=== PATIENT | male | born 1935 | race Two or more races ===

== ENCOUNTER 2017-08-19 08:00 | Outpatient (CLI) | payer MEDICARE, BC | END 2017-08-19 23:59 | disposition home health service (06) | LOC: WOU 08:00 | PROVIDERS: ATTEND Specialist | DX: I70.262 Atherosclerosis of native arteries of extremities with gangrene, left leg (principal); Z87.891 Personal history of nicotine dependence; Z85.118 Personal history of other malignant neoplasm of bronchus and lung; Z85.810 Personal history of malignant neoplasm of tongue | CPT/HCPCS: 71046; 93922; A6209; A6402; G0463 ==